=== PATIENT | female | born 1960 | race Caucasian/White ===

== ENCOUNTER 2019-10-20 11:29 | Day surgery (SDC) | payer BC, SELFPAY ==
[2019-10-13 15:14] LABS: BASOPHILS % (AUTO) 0.6 % (0-1); EOSINOPHILS # (AUTO) 0.2 X10'3 (0-0.9); EOSINOPHILS % (AUTO) 2.7 % (0-6); LYMPHOCYTES # (AUTO) 2.3 X10'3 (1.1-4.8); LYMPHOCYTES % (AUTO) 36.3 % (21-51); MEAN CORPUSCULAR HGB CONC 33.7 g/dL (33.0-36.5); MONOCYTES # (AUTO) 0.6 X10'3 (0-0.9); MONOCYTES % (AUTO) 9.6 % (2-12); NEUTROPHILS # (AUTO) 3.2 X10'3 (1.8-7.7); NEUTROPHILS % (AUTO) 50.8 % (42-75); PRE OP HEMATOCRIT 42.6 % (35.0-45.0); PRE OP HEMOGLOBIN 14.4 g/dL (12.0-16.0); PRE OP PLATELET COUNT 292 X10'3 (140-440); RED BLOOD COUNT 4.79 X10'6 (4.20-5.60)
[2019-10-13 15:18] LABS: CLARITY,URINE CLEAR (Clear); COLOR,URINE YELLOW (Yellow); GLUCOSE, URINE NEGATIVE (Neg); KETONES,URINE NEGATIVE (Neg); LEUKOCYTE ESTERASE ,URINE NEGATIVE (Neg); NITRITES, URINE NEGATIVE (Neg); OCCULT BLOOD,URINE NEGATIVE (Neg); PROTEIN,URINE NEGATIVE (Neg); UROBILINOGEN,URINE 0.2 E.U/dL (0.2-1.0)
[2019-10-13 15:23] LABS: UA COLLECTION TYPE CLN CATCH MIDSTREAM
[2019-10-13 15:27] LABS: ALBUMIN 4.2 G/DL (3.4-5.0); ALBUMIN/GLOBULIN RATIO 1.1 (1.1-1.5); ALKALINE PHOSPHATASE 92 IU/L (46-116); BLOOD UREA NITROGEN 18 MG/DL (7-18); BUN/CREATININE RATIO 17.5 (6.6-38.0); CHLORIDE 106 MMOL/L (99-107); CREATININE 1.03 MG/DL (0.40-0.90); PRE OP ALT 44 U/L (30-65); PRE OP ANION GAP 8 (8-16); PRE OP AST 27 U/L (10-37); PRE OP BILIRUB, TOTAL 0.3 MG/DL (0.0-1.0); PRE OP GLUCOSE 93 MG/DL (70-104); PRE OP POTASSIUM 3.7 MMOL/L (3.4-5.1); PRE OP SODIUM 142 MMOL/L (135-145); TOTAL CARBON DIOXIDE 28.1 MMOL/L (24-32); TOTAL PROTEIN 8.1 G/DL (6.4-8.2); eGFR 55 ML/MIN
[~2019-10-20] VITALS: Ht 170.2 cm; Wt 99.8 kg
[2019-10-20] VITALS (7 sets, daily range): BP systolic 124–153; BP diastolic 64–94
[~2019-10-20 11:29] MED LIST: LEVO175T2 PO; ceFOXitin 2GM-NS 100mL ADDvant 100 ML IV ONE; famotidine 20mg tablet PO ONE; ringers solution, lacted 1,000 ML IV SCH
[2019-10-20] MEDS ORDERED: sevoflurane 250ml liquid IH ONE (15:06)
[2019-10-20] MEDS ORDERED: fentaNYL/PF 50MCG/1 ML 2ML syringe ONE (15:10)
[2019-10-20] MEDS ORDERED: midazolam 2 mg/2 ml injection ONE (15:11)
[2019-10-20] MEDS ORDERED: dexamethasone sod phosphate 4mg/ml inj. ONE (15:31)
[2019-10-20] MEDS ORDERED: LIDOcaine 2% (20mg/ml) 5ml vial ONE (15:31)
[2019-10-20] MEDS ORDERED: ondansetron/PF 4mg/2ml inj ONE (15:31)
[2019-10-20] MEDS ORDERED: propofol inj 20 ML IV ONE (15:31)
[2019-10-20] MEDS ORDERED: ringers solution, lacted 1,000 ML IV SCH (15:52)
[2019-10-20] MEDS ORDERED: morphine 4 MG/ML inj SYRINge IV PRN (15:55)
[2019-10-20] MEDS ORDERED: ondansetron/PF 4mg/2ml inj IV PRN (15:55)
[2019-10-20] MEDS ORDERED: meperidine/PF 25mg/ml syringe IV PRN ×3 (15:55)
[2019-10-20] MEDS ORDERED: proCHLORperazine 10 MG/2 ml inj IV PRN (15:55)
[2019-10-20] MEDS ORDERED: morphine 2 MG/ML inj. syringe IV PRN (15:55)
--- NOTE | 2019-10-20 16:06 | NUR ---
Received from OR via [facility], accompanied by Anesthesiologist MAHENDRA and report given by Anesthesiologist. 20G RUE, DENIES PAIN, PERIPAD IN PLACE, DENIES NAUSEA
--- NOTE | 2019-10-20 17:25 | NUR ---
PATIENT HAS MET ALL DC CRITERIA FOR DC HOME. I HAVE REVIEWED D/C INSTRUCTIONS WITH PATIENT AND FAMILY AND THEY HAVE VERBALIZED UNDERSTANDING, OPPORTUNITY TO ASK QUESTIONS GIVEN AND PATIENT COMFORTABLE WITH DC. IV TAKEN OUT WITHOUT COMPLICATION. OUT VIA WHEELCHAIR WHERE PATIENT WAS TAKEN HOME WITH ALL BELONGINGS. FAMILY GAVE PATIENT TRANSPORT HOME. Addendum: 10/20/19 at 1726 by Yomi Kincaid RN, RN Amended: Links added.
== END 2019-10-20 16:57 | disposition home or self-care (01) ==
LOC: PAS 11:29
PROVIDERS: ATTEND Obstetrics & Gynecology Obstetrics
DX: N95.0 Postmenopausal bleeding (principal); N84.0 Polyp of corpus uteri; D25.0 Submucous leiomyoma of uterus; Z11.59 Encounter for screening for other viral diseases; E03.9 Hypothyroidism, unspecified; M19.90 Unspecified osteoarthritis, unspecified site; F32.9 Major depressive disorder, single episode, unspecified; E78.5 Hyperlipidemia, unspecified; E66.9 Obesity, unspecified; Z68.38 Body mass index [BMI] 38.0-38.9, adult; Z72.89 Other problems related to lifestyle; Z79.899 Other long term (current) drug therapy; Z98.890 Other specified postprocedural states; Z80.9 Family history of malignant neoplasm, unspecified
CPT/HCPCS: 36415; 58558; 71046; 80053; 81003; 82948; 85025; 86885; 86900; 86901; 87635; 93005; J0694; J1100; J2001; J2250; J2405; J2704; J3010; J7030; J7120; A4355; A4618; A6253; A6258; A7000